=== PATIENT | female | born 1955 | race African-American/Black ===

== ENCOUNTER → 2018-03-18 | Outpatient (CLI) | payer BC ==
--- NOTE | 2018-03-18 16:35 | RADIOLOGY REPORT (SQ) ---
EXAM DESCRIPTION: MRI ABDOMEN COMBO COMPLETED DATE/TIME: 03/18/2018 12:55 pm REASON FOR STUDY: MALIGNANT NEOPLASM OF UNSP KIDNEY, EXCEPT RENAL PELVIS (C64.9) C64.9 MALIGNANT NE OPLASM OF UNSP KIDNEY, EXCEPT RENAL PELVIS COMPARISON: Report only, CT chest abdomen pelvis 03/10/2018 [facility] TECHNIQUE: Multiplanar multisequence imaging performed without and with contrast including sagittal, axial and coronal T2, axial T1, axial gradient fat sat T1, axial, sagittal and coronal fat sat T1 po st contrast. CONTRAST TYPE AND DOSE: 20 mL Prohance. RENAL FUNCTION: Estimated GFR 58 LIMITATIONS: None. FINDINGS: LIVER: Normal size. No masses. No dilated ducts. CBD normal. SPLEEN: Normal size. No focal lesions. PANCREAS: No masses. No adjacent inflammation or peripancreatic fluid collections. Pancreatic duct no t dilated. GALLBLADDER: Surgically absent ADRENAL GLANDS: No significant masses or asymmetry. RIGHT KIDNEY AND URETER: In the posterior right upper pole kidney, a 2.6 x 2.6 cm complex cystic lesi on is present. There is a thick nodular enhancing cyst wall, and mild contrast enhancement of the ce ntral portion of this lesion over time. This is a Bosniak 3 lesion, an would be amenable to radiofre quency ablation or cryoablation because of its location. Elsewhere in the right kidney, a 7 mm simple cyst in the midpole is present. LEFT KIDNEY AND URETER: Patient is post partial nephrectomy along the left lower pole kidney. Focal cortical scarring, hemosiderin staining and minimal ferromagnetic artifact at the operative site is p resent. In the left upper pole kidney, a 1.8 x 1.5 cyst is present with a single thin septation no worrisome contrast enhancement. This is a benign finding. AORTA AND VESSELS: No aneurysm. No dissection. Renal arteries, SMA, celiac without stenosis. RETROPERITONEUM: No retroperitoneal adenopathy, hemorrhage or masses. BOWEL: Not well seen ABDOMINAL WALL AND PERITONEUM: No hernias. No free fluid. BONES: L2 hemangioma OTHER: No other significant finding. IMPRESSION: Complex cystic enhancing lesion in the posterior right upper pole kidney, Bosniak 3 lesi on. This would be amenable to percutaneous ablation because of its location. TECHNICAL DOCUMENTATION: JOB ID: [id number]- All Rights Reserved Reading location - IP/workstation name: [email or web address]
== END ==
LOC: RAD 11:29
PROVIDERS: ATTEND Internal Medicine Medical Oncology
DX: C64.9 Malignant neoplasm of unspecified kidney, except renal pelvis (principal)
CPT/HCPCS: 74183; A9576

== ENCOUNTER 2018-12-20 13:19 | Emergency (ER) | payer BC ==
--- NOTE | 2018-12-20 14:23 | ER Document Report ---
ED Medical Screen (RME) - General Chief Complaint: Leg Pain Stated Complaint: LEG PAIN Time Seen by Provider: 12/20/18 14:19 Primary Care Provider: KATT CAMACHO MD [Primary Care Provider] - Follow up as needed Notes: 63-year-old female patient sent to emergency room from [facility] for venous Doppler of the right lower extremity. She has pain in the leg for the past 3 days. She reports she did get on a recumbent bike a week ago. There is some tenderness deep in the calf posteriorly, there is chronic edema to the lower extremities, there is most tender along the posterior medial aspect of the tibia. I have greeted and performed a rapid initial assessment of this patient. A comprehensive ED assessment and evaluation of the patient, analysis of test results and completion of the medical decision making process will be conducted by additional ED providers. TRAVEL OUTSIDE OF THE [place] IN LAST 30 DAYS: No - Related Data Allergies/Adverse Reactions: enalaprilat [From Vasotec] Allergy (Verified 12/20/18 14:15) iodine Allergy (Verified 12/20/18 14:15) Past Medical History - Social History Frequency of alcohol use: None Drug Abuse: None - Past Medical History Cardiac Medical History: Reports: Hx Hypertension Renal/ Medical History: Denies: Hx Peritoneal Dialysis Musculoskeltal Medical History: Reports Hx Arthritis Past Surgical History: Reports: Hx Breast Surgery - left lumpectomy, Hx Cholecystectomy, Hx Kidney (Renal Surgery) - partial hafsa nephrectomy due to ca, Hx Thyroid Surgery - removed, Hx Tubal Ligation Physical Exam - Vital signs Vitals: Temp Pulse Resp BP Pulse Ox 98.8 F 93 18 153/94 H 97 12/20/18 13:27 12/20/18 13:27 12/20/18 13:27 12/20/18 13:27 12/20/18 13:27 Course - Vital Signs Vital signs: Temp Pulse Resp BP Pulse Ox 98.8 F 93 18 153/94 H 97 12/20/18 13:27 12/20/18 13:27 12/20/18 13:27 12/20/18 13:27 12/20/18 13:27 Doctor's Discharge - Discharge Referrals: KATT CAMACHO MD [Primary Care Provider] - Follow up as needed
[2018-12-20 14:43] LABS: ABSOLUTE BASOPHILS # (AUTO) 0.1 10^3/uL (0.0-0.2); ABSOLUTE EOSINOPHILS # (AUTO) 0.2 10^3/uL (0.0-0.6); ABSOLUTE LYMPHOCYTES (AUTO) 1.9 10^3/uL (0.5-4.7); ABSOLUTE MONOCYTES (AUTO) 0.8 10^3/uL (0.1-1.4); ABSOLUTE NEUT (AUTO) 9.6 10^3/uL (1.7-8.2); BASOPHILS % (AUTO) 0.9 % (0-2); EOSINOPHILS % (AUTO) 1.3 % (0-6); HEMATOCRIT 37.6 % (36.0-47.0); HEMOGLOBIN 12.5 g/dL (12.0-15.5); LYMPHOCYTES % (AUTO) 14.8 % (13-45); MEAN CORPUSCULAR HEMOGLOBIN 28.6 pg (27.0-33.4); MEAN CORPUSCULAR HGB CONC 33.2 g/dL (32.0-36.0); MEAN CORPUSCULAR VOLUME 86 fl (80-97); MONOCYTES % (AUTO) 6.5 % (3-13); PLATELET COUNT 423 10^3/uL (150-450); RED BLOOD COUNT 4.37 10^6/uL (3.72-5.28); SEGMENTED NEUTROPHILS % (AUTO) 76.5 % (42-78); TOTAL CELLS COUNTED % (AUTO) 100 %; WHITE BLOOD COUNT 12.6 10^3/uL (4.0-10.5)
[2018-12-20 14:56] LABS: ALANINE AMINOTRANSFERASE 25 U/L (9-52); ALBUMIN 3.3 g/dL (3.5-5.0); ALKALINE PHOSPHATASE 98 U/L (38-126); ANION GAP 7 (5-19); ASPARTATE AMINO TRANSFERASE 20 U/L (14-36); BILIRUBIN,DIRECT 0.2 mg/dL (0.0-0.4); BILIRUBIN,TOTAL 0.7 mg/dL (0.2-1.3); BLOOD UREA NITROGEN 21 mg/dL (7-20); CALCIUM 9.5 mg/dL (8.4-10.2); CARBON DIOXIDE 28 mmol/L (22-30); CHLORIDE 106 mmol/L (98-107); GLUCOSE 112 mg/dL (75-110); POTASSIUM 4.2 mmol/L (3.6-5.0); SODIUM 140.8 mmol/L (137-145)
[2018-12-20 14:57] LABS: INTERNATIONAL RATION (INR) 1.09; PROTHROMBIN TIME 14.7 SEC (11.4-15.4)
[2018-12-20 15:20] LABS: D-DIMER 4.57 ug/mL (0.00-0.50)
[2018-12-20] MEDS ORDERED: KETOROLAC TROMETHAMINE 60 MG/2 ML SDV IM ONE (16:13)
--- NOTE | 2018-12-20 16:13 | ER Document Report ---
ED General - General Chief Complaint: Leg Pain Stated Complaint: LEG PAIN Time Seen by Provider: 12/20/18 14:19 Primary Care Provider: KATT CAMACHO MD [ACTIVE STAFF] - Follow up as needed Notes: Patient is a 63-year-old female who presents the emergency department with a chief complaint of pain and swelling in her right lower leg. She states that her symptoms started about 3 days ago. She states that when she steps down she feels a pain in her medial anterior leg. She states that it is a dull pain that is constant. She states that she was on a stationary bike 3 days ago and that was her first time working out in a long time. Attempted to take tramadol, but had no relief. Her past medical history includes chronic back pain with herniated disc, left breast lumpectomy, short nephrectomy of bilateral kidneys, , cholecystectomy, and hypothyroidism. She does have history of a blood clot about 40 years ago due to being on control. She denies any shortness of breath, chest pain, difficulty breathing, nausea, vomiting, diarrhea, abdominal pain, or any other symptoms at this time. She is currently not on any blood thinner medications. TRAVEL OUTSIDE OF THE [place] IN LAST 30 DAYS: No - Related Data Allergies/Adverse Reactions: enalaprilat [From Vasotec] Allergy (Verified 12/20/18 14:15) iodine Allergy (Verified 12/20/18 14:15) Past Medical History - Social History Smoking Status: Never Smoker Frequency of alcohol use: None Drug Abuse: None Family History: Reviewed & Not Pertinent Patient has suicidal ideation: No Patient has homicidal ideation: No - Past Medical History Cardiac Medical History: Reports: Hx Hypertension Renal/ Medical History: Denies: Hx Peritoneal Dialysis Musculoskeletal Medical History: Reports Hx Arthritis Past Surgical History: Reports: Hx Breast Surgery - left lumpectomy, Hx Cholecystectomy, Hx Kidney (Renal Surgery) - partial hafsa nephrectomy due to ca, Hx Thyroid Surgery - removed, Hx Tubal Ligation Review of Systems - Review of Systems Notes: REVIEW OF SYSTEMS: CONSTITUTIONAL : Denies recent illness. Denies recent unintentional weight loss. Denies fever, chills, or sweats. EENT: Denies eye, ear, throat, or mouth pain, discharge, or symptoms. Denies nasal or sinus congestion. CARDIOVASCULAR: Denies chest pain. RESPIRATORY: Denies shortness of breath, cough, congestion, difficulty demi athing, or wheezing. GASTROINTESTINAL: Denies nausea, vomiting, and diarrhea. Denies abdominal pain. Denies constipation. GENITOURINARY: Denies difficulty urinating, burning, blood in urine, urgency or frequency. MUSCULOSKELETAL: See HPI SKIN: Denies rash, itchiness, or lesions HEMATOLOGIC : Denies easy bruising or bleeding. LYMPHATIC: Denies swollen, painful, enlarged glands. NEUROLOGICAL: Denies no numbness or tingling denies weakness. Denies headache. Denies altered mental status. Denies alteration in speech. PSYCHIATRIC: Denies stress, anxiety, alteration in sleep patterns, or depression. All other systems reviewed and negative. Physical Exam - Vital signs Vitals: Temp Pulse Resp BP Pulse Ox 98.8 F 93 18 153/94 H 97 12/20/18 13:27 12/20/18 13:27 12/20/18 13:27 12/20/18 13:27 12/20/18 13:27 - Notes Notes: PHYSICAL EXAMINATION: GENERAL: Appears well, healthy, well-nourished, no acute distress. HEAD: Normocephalic, atraumatic. EYES: PERRL, conjunctiva normal, all extraocular movements intact, sclera nonicteric ENT: Moist mucous membranes. NECK: Supple, no noticeable swelling, redness, rash. Normal range of motion. LUNGS: Equal breath sounds bilaterally and clear to auscultation. No wheezes rales or rhonchi. CARDIOVASCULAR: S1-S2, regular rate, regular rhythm. Radial pulses 2+, normal. ABDOMEN: Normoactive bowel sounds. Soft, nontender, no guarding, no rebound tenderness, and no masses palpated. EXTREMITIES: Normal strength and range of motion, no pitting or very mild nonpitting edema to right lower extremity. No cyanosis. NEUROLOGICAL: Moves all extremities upon command. Strength 5/5 in all extremiti es. PSYCH: Normal mood, normal affect. SKIN: Warm, dry. No rash, lesions, ulcerations noted. Normal skin turgor. Course - Re-evaluation Re-evalutation: 12/20/18 16:18 Patient's venous Doppler study is negative at this time for a DVT. Her d-dimer is elevated, but venous Doppler study confirms there is no DVT at this time. Sh e denies any shortness of breath, nausea, vomiting, diarrhea, chest pain, or any other symptoms at this time. I do not suspect she has any life-threatening etiology at this time. Most likely cause of her right leg pain is due to her exercising for the first time in a long time and her having musculoskeletal pain. She will receive a dose of Toradol here in the emergency department and follow-up with her primary care provider in regards to this visit. She will also start on low-dose ibuprofen and Tylenol to help with her pain. I have discussed this plan with the patient and she is in agreement. Verbal discharge instructions were given to the patient. They verbalized understanding. They are stable for discharge. - Vital Signs Vital signs: Temp Pulse Resp BP Pulse Ox 98.3 F 86 18 142/86 H 95 12/20/18 16:21 12/20/18 16:21 12/20/18 16:21 12/20/18 16:21 12/20/18 16:21 - Laboratory Result Diagrams: 12/20/18 14:30 12/20/18 14:30 Laboratory results interpreted by me: 12/20/18 12/20/18 12/20/18 14:30 14:30 14:30 WBC 12.6 H Absolute Neutrophils 9.6 H D-Dimer 4.57 H BUN 21 H Est GFR (Non-Af Amer) 57 L Glucose 112 H Albumin 3.3 L Discharge - Discharge Clinical Impression: Pain and swelling of right lower extremity Condition: Stable Disposition: HOME, SELF-CARE Additional Instructions: You were seen today in the emergency department for pain and swelling in your right leg. Your ultrasound is normal, there is no clot. Your pain is most likely due to musculoskeletal pain. You received Toradol, medication for pain. Do not take ibuprofen for another 6 hours. You may take Tylenol 1000 mg and ibuprofen 400 mg every 6 hours as needed for your pain. Please follow-up with your primary care provider in regards to this visit. If you develop shortness o f breath, worsening symptoms, or any symptoms that are worrisome to you, please return to the emergency department. Referrals: KATT CAMACHO MD [ACTIVE STAFF] - Follow up as needed
[2018-12-20 16:26] VITALS: BP 142/86
--- NOTE | 2018-12-20 21:48 | VASCULAR PRELIM REPORT ---
Provider Note Provider Note: The right lower extremity is negative for DVT.Full report to follow.
--- NOTE | 2018-12-22 11:29 | XCELERA REPORT ---
[address] [facility] [place] [facility] [address] Lower Extremity Venous Evaluation Procedure: Color flow and duplex imaging of the veins of the right lower extremity as well as the left Common Femoral vein. Right Sided Venous Evaluation Normal vessel filling wall to wall, compression and augmentation as well as Colour flow down to the infrageniculate veins. Left Sided Venous Evaluation The left common femoral vein is fully compressible. Spontaneous and phasic flow is present in the left common femoral vein. Interpretation Summary No duplex evidence of DVT or obstruction in the right lower extremity nor in the left Common Femoral vein. Name: KENIA HUDSON Age: 63 yrs Gender: Female : 1955 Patient Status: Preadmit Patient Location: ER Study Date: 12/20/2018 03:01 PM Reason For Study: RLE pain and swelling Ordering Physician: CORDELIA COREAS Performed By: Deandre De La Vega : CORDELIA COREAS > Mata Juan
== END 2018-12-20 16:45 | disposition home or self-care (01) ==
LOC: ER 13:19
DX: M79.604 Pain in right leg (principal); M79.89 Other specified soft tissue disorders; I10 Essential (primary) hypertension; Z90.49 Acquired absence of other specified parts of digestive tract; Z90.5 Acquired absence of kidney
CPT/HCPCS: 99284; 96372; 36415; 85025; 85610; 80053; 85379; 93971 ×2; J1885

== ENCOUNTER 2020-09-02 07:53 | Day surgery (SDC) | payer BC ==
[~2020-09-02 07:53] MED LIST: PROPOFOL INJ 200 MG/20 ML VIAL IV ONE
--- NOTE | 2020-09-02 12:46 | Operative Report ---
Operative Report DATE OF SURGERY: 09/02/20 Operative Report: The risk, benefits and alternatives of the procedure including the risk of bleeding, perforation requiring surgery have been explained to the patient in detail and informed consent has been obtained. Patient is taken back to the endoscopy suite and placed in the left, lateral decubital position. Timeout was called. Propofol medication is administered. Rectal examination is done which did not reveal any masses, tears or fissures. An Olympus videoscope was introduced into the patient's rectum. Scope was then carefully advanced all the way to the cecum. Cecum was identified by the usual anatomical landmarks including the ileocecal valve as well as the appendiceal office. Photodocumentation is obtained. Scope was then sequentially pulled back via the various segments of the colon including the ascending colon, hepatic flexure, transverse colon, splenic flexure, descending colon and finally into the rectosigmoid portions of the colon. Retroflexion maneuver is performed. The risks benefits and alternatives of the procedure explained to the patient in detail and informed consent is obtained.A GIF Olympus video scope was inserted into the patient's mouth and hypopharynx, the esophagus is identified intubated and insufflated ,the scope was then advanced through the esophagus stomach and duodenum ,retroflexion maneuver is done, the esophagus stomach and first and second portions of the duodenum examined PREOPERATIVE DIAGNOSIS: Change in bowel habits. Gastroesophageal reflux disease POSTOPERATIVE DIAGNOSIS: Right colon inflammation status post biopsy. Diverticulosis without any evidence of diverticulitis, internal hemorrhoids. Gastritis status post biopsy OPERATION: Colonoscopy with biopsy. EGD with biopsy SURGEON: SANTOS FRANZ ANESTHESIA: LMAC TISSUE REMOVED OR ALTERED: As noted above. COMPLICATIONS: None. ESTIMATED BLOOD LOSS: None. INTRAOPERATIVE FINDINGS: As noted above. PROCEDURE: Patient tolerated the procedure well. No immediate postprocedure complications are noted. Patient is discharged in good condition. Discharge date 09/02/2020. Discharge diet: Regular. Discharge activity: Regular. 2 to 3-week follow-up to discuss findings. Patient is instructed call the office or proceed to the emergency room should there be any further problems questions. Wait on the pathology.
[2020-09-02 12:55] VITALS: BP 130/76
== END 2020-09-02 11:45 | disposition home or self-care (01) ==
LOC: END 07:53
PROVIDERS: ATTEND Internal Medicine Gastroenterology
DX: K57.30 Diverticulosis of large intestine without perforation or abscess without bleeding (principal); K52.9 Noninfective gastroenteritis and colitis, unspecified; K64.8 Other hemorrhoids; K29.50 Unspecified chronic gastritis without bleeding; K21.00 Gastro-esophageal reflux disease with esophagitis, without bleeding; L40.9 Psoriasis, unspecified; I10 Essential (primary) hypertension; Z79.899 Other long term (current) drug therapy; Z86.010 Personal history of colon polyps; Z85.528 Personal history of other malignant neoplasm of kidney; Z90.5 Acquired absence of kidney
CPT/HCPCS: 43239; 45380; 88342 ×2; 88305 ×2; 00813; J2704; 813